=== PATIENT | male | born 1950 | race American Indian/Alaskan Native ===

== ENCOUNTER 2019-02-28 10:52 | Day surgery (SDC) | payer OTHER ==
[2019-02-28] MEDS ORDERED: SODIUM CHLORIDE 0.9% 1000 ML 1,000 ML IV SCH (12:00)
[2019-02-28] MEDS ORDERED: LIDOCAINE MPF (2%) 20 MG/1 ML VIAL 5 ML ONE (13:00)
--- NOTE | 2019-02-28 13:01 | Anesthesia Consultation ---
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
--- NOTE | 2019-02-28 13:03 | Anesthesia Day of Surgery ---
Anesthesia Day of Surgery - Day of Surgery Patient Examined: Yes Patient H&P Reviewed: Yes Patient is NPO: Yes
[2019-02-28] MEDS ORDERED: PROPOFOL 200 MG/20 ML VIAL IV ONE ×2 (13:06)
--- NOTE | 2019-02-28 13:58 | Operative Report ---
Operative Report Operative Report: Procedure: Colonoscopy with Snare polypectomy, Submucosal injection with elevation of polyp, Hot Biopsy Polypectomy Attending physician: Doc Santillan M.D. Branch Lending Manager: Doc Santillan M.D. Indication: Patient is a 68-year-old male who presents for screening colonoscopy. This colonoscopy serves to evaluate patient so that treatment may be directed based on the findings. Consent: Informed consent was obtained after advising the patient and family regarding nature of this procedure, its indications, potential benefits as well as possible complications including but not limited to bleeding perforation and adverse reaction to medication, infection as well as other cardiopulmonary complications. An informed written and verbal consent was then obtained after due opportunity was provided for questions and answers. Monitoring: Patient was monitored continuously with pulse oximetry and electrocardiographic recordings as well as blood pressure recordings. Vital signs remained stable throughout this procedure with no untoward events. Preoperative assessment: Patient was assessed immediately prior to this procedure for capacity to tolerate monitored anesthesia care and moderate sedation as well as general anesthesia. Patient's ASA classification is 2, Mallampati class is 2, Hyomental distance is 3. Instrument: Olympus video colonoscope.: CF-HQ 190L Medications: Propofol given intravenously in divided doses. For details please refer to anesthesia records. Description of procedure: Patient was placed in the left lateral decubitus position after achieving sedation, a digital rectal examination was performed following which the colonoscope was introduced into the anal verge and advanced to the cecum which was identified by the cecal valve, the appendiceal orifice, as well as by the cecal strap and direct transillumination. The colonoscope was subsequently withdrawn with careful inspection of all mucosal surfaces. Patient tolerated this procedure well and was subsequently taken to the recovery room. The following findings were noted. Findings: Patient had a sessile polyp seen in the ascending colon measuring about 10 mm. This was elevated with submucosal injection of saline and removed by snare electrocautery and retrieved. There was an adjacent polyp measured approximately 8 mm which was removed by hot biopsy polypectomy and retrieved. There were diverticula seen in the ascending colon. There were diverticula seen in the sigmoid colon and descending colon. Substantial retained stool seen in the ascending colon and also in the descending colon sigmoid colon. Patient was noted to have internal hemorrhoids seen on the retroflexed view at the anal verge. Impression: Ascending polyp status post snare polypectomy and submucosal injection Ascending colon polyps status post hot biopsy polypectomy and ablation. Diverticular disease of the colon. Internal hemorrhoids. Retained stool. Plan: Follow pathology report. High-fiber diet. Consider repeat colonoscopy in one year due to retained stool.
--- NOTE | 2019-02-28 13:59 | Discharge Summary ---
Short Stay Discharge Plan Activity: advance as tolerated Weight Bearing Status: Weight Bear as Tolerated Diet: regular Follow up with: [facility] [Primary Care Provider] - 7 Days
[2019-02-28 14:35] VITALS: BP 114/95
--- NOTE | 2019-02-28 20:40 | Post Anesthesia Evaluation ---
- Post Anesthesia Evaluation Patient Participated: Yes Airway Patent: Yes Stable Respiratory Function: Yes Nausea/Vomiting: No Temp > 96.8F: Yes Pain Manageable: Yes Adequeate Hydration: Yes Anesthesia Complications: No Block Receding Appropriately: Not Applicable Patient on Ventilator: No
== END 2019-02-28 10:53 | disposition home or self-care (01) ==
LOC: GIO 10:52
PROVIDERS: ATTEND Internal Medicine Gastroenterology
DX: D12.2 Benign neoplasm of ascending colon (principal); I10 Essential (primary) hypertension; E11.9 Type 2 diabetes mellitus without complications; N40.0 Benign prostatic hyperplasia without lower urinary tract symptoms; K64.8 Other hemorrhoids; K57.30 Diverticulosis of large intestine without perforation or abscess without bleeding; E78.00 Pure hypercholesterolemia, unspecified; G47.30 Sleep apnea, unspecified; Z98.890 Other specified postprocedural states; Z79.899 Other long term (current) drug therapy; Z87.891 Personal history of nicotine dependence; Z96.653 Presence of artificial knee joint, bilateral; Z86.73 Personal history of transient ischemic attack (TIA), and cerebral infarction without residual deficits
CPT/HCPCS: 45381; 45384; 45385; 82962; 88305; J2704; J7030

== ENCOUNTER 2019-09-24 12:48 | Emergency (ER) | payer OTHER ==
--- NOTE | 2019-09-24 14:13 | XRay Report ---
CHEST 1 VIEW INDICATION / CLINICAL INFORMATION: hypertension. COMPARISON: None available. FINDINGS: SUPPORT DEVICES: None. HEART / MEDIASTINUM: No significant abnormality. LUNGS / PLEURA: No significant pulmonary or pleural abnormality. No pneumothorax. ADDITIONAL FINDINGS: No significant additional findings. IMPRESSION: 1. No acute findings. Signer Name: Ken Ramírez MD Signed: 09/24/2019 2:09 PM Workstation Name: [id number]
[2019-09-24] MEDS ORDERED: SODIUM CHLORIDE 0.9% 1000 ML 1,000 ML IV ONE (14:15)
--- NOTE | 2019-09-24 14:15 | Emergency Department Report ---
<MAYA QUIROS M - Last Filed: 09/24/19 15:18> ED General Adult HPI - General Chief complaint: Medical Clearance Stated complaint: DEMENTIA Time Seen by Provider: 09/24/19 13:44 Source: EMS Mode of arrival: Stretcher Limitations: Other - History of Present Illness Initial comments: 69-year-old man with a history of dementia. He was [place]. He was wet and thereby brought to the emergency department for evaluation. Upon arrival, I am told he is at his baseline. He is awake and alert. He does not know his age. He does not know exactly where he is geographically. He does know he is in a hospital. He has no specific complaint he denies injury. -: unknown Severity scale (0 -10): 0 Associated Symptoms: denies other symptoms - Related Data Home Medications Medication Instructions Recorded Confirmed Last Taken Pravastatin Sodium 40 mg PO DAILY 02/28/19 02/28/19 02/26/19 Sertraline HCl 100 mg PO DAILY 02/28/19 02/28/19 02/26/19 Tamsulosin 0.4 mg PO DAILY 02/28/19 02/28/19 02/26/19 amLODIPine 10 mg PO DAILY 02/28/19 02/28/19 02/28/19 Allergies Allergy/AdvReac Type Severity Reaction Status Date / Time No Known Allergies Allergy Verified 09/24/19 13:31 ED Review of Systems Constitutional: denies: chills, fever Eyes: eye discharge. denies: eye pain, vision change ENT: denies: ear pain, throat pain Respiratory: wheezing. denies: cough, shortness of breath Cardiovascular: denies: chest pain, palpitations Endocrine: no symptoms reported Gastrointestinal: denies: abdominal pain, vomiting, diarrhea Genitourinary: denies: urgency, dysuria Musculoskeletal: denies: back pain, joint swelling Skin: denies: rash, lesions Neurological: denies: headache, weakness Psychiatric: denies: anxiety, depression Hematological/Lymphatic: denies: easy bleeding, easy bruising ED Past Medical Hx - Past Medical History Previous Medical History?: Yes Hx Hypertension: Yes Hx Diabetes: Yes (PRE) Hx Dementia: Yes Additional medical history: gout - Social History Smoking Status: Never Smoker Substance Use Type: None - Medications Home Medications: Home Medications Medication Instructions Recorded Confirmed Last Taken Type Pravastatin Sodium 40 mg PO DAILY 02/28/19 02/28/19 02/26/19 History Sertraline HCl 100 mg PO DAILY 02/28/19 02/28/19 02/26/19 History Tamsulosin 0.4 mg PO DAILY 02/28/19 02/28/19 02/26/19 History amLODIPine 10 mg PO DAILY 02/28/19 02/28/19 02/28/19 History ED Physical Exam - General Limitations: Other (Dementia) General appearance: alert, in no apparent distress - Head Head exam: Present: atraumatic, normocephalic - Eye Eye exam: Present: normal appearance. Absent: scleral icterus - ENT ENT exam: Present: mucous membranes moist - Neck Neck exam: Present: normal inspection. Absent: tenderness, meningismus - Respiratory Respiratory exam: Present: normal lung sounds bilaterally. Absent: respiratory distress - Cardiovascular Cardiovascular Exam: Present: regular rate, normal rhythm. Absent: systolic murmur, diastolic murmur, rubs, gallop - GI/Abdominal GI/Abdominal exam: Present: soft, normal bowel sounds. Absent: distended, tenderness, guarding, rebound - Rectal Rectal exam: Present: deferred - Extremities Exam Extremities exam: Present: normal inspection - Back Exam Back exam: Present: normal inspection - Neurological Exam Neurological exam: Present: alert, oriented X3 (Generally), CN II-XII intact, other (No drift, no cerebellar findings). Absent: motor sensory deficit - Psychiatric Psychiatric exam: Present: normal affect, normal mood - Skin Skin exam: Present: warm, dry, intact, normal color. Absent: rash ED Medical Decision Making - Lab Data Result diagrams: 09/24/19 14:10 09/24/19 14:10 Laboratory Results - last 24 hr 09/24/19 09/24/19 09/24/19 14:10 14:10 14:10 WBC 9.4 RBC 4.53 Hgb 14.0 Hct 41.8 MCV 92 MCH 31 MCHC 34 RDW 13.7 Plt Count 159 Lymph % (Auto) 5.3 L [place] % (Auto) 4.5 Eos % (Auto) 0.1 Baso % (Auto) 0.3 Lymph # 0.5 L [place] # 0.4 Eos # 0.0 Baso # 0.0 Seg Neutrophils % 89.8 H Seg Neutrophils # 8.4 H Sodium 144 Potassium 4.2 Chloride 103.1 Carbon Dioxide 27 Anion Gap 18 BUN 14 Creatinine 1.0 Estimated GFR > 60 BUN/Creatinine Ratio 14 Glucose 136 H Calcium 9.9 Magnesium 2.10 Total Bilirubin 0.60 Direct Bilirubin < 0.2 AST 26 ALT 15 Alkaline Phosphatase 79 Ammonia 30.0 CK-MB (CK-2) 4.0 Troponin T 0.027 NT-Pro-B Natriuret Pep 105.4 Total Protein 6.9 Albumin 4.8 Albumin/Globulin Ratio 2.3 Plasma/Serum Alcohol 09/24/19 14:10 WBC RBC Hgb Hct MCV MCH MCHC RDW Plt Count Lymph % (Auto) [place] % (Auto) Eos % (Auto) Baso % (Auto) Lymph # [place] # Eos # Baso # Seg Neutrophils % Seg Neutrophils # Sodium Potassium Chloride Carbon Dioxide Anion Gap BUN Creatinine Estimated GFR BUN/Creatinine Ratio Glucose Calcium Magnesium Total Bilirubin Direct Bilirubin AST ALT Alkaline Phosphatase Ammonia CK-MB (CK-2) Troponin T NT-Pro-B Natriuret Pep Total Protein Albumin Albumin/Globulin Ratio Plasma/Serum Alcohol < 0.01 - Radiology Data Radiology results: pending, image reviewed (Chest x-ray no acute process. I do not see anything acute on CT. Report is pending.) ED Disposition Clinical Impression: Dementia with behavioral disturbance Qualifiers: Dementia type: unspecified type Qualified Code(s): F03.91 - Unspecified dementia with behavioral disturbance Disposition: DC-01 TO HOME OR SELFCARE Is pt being admited?: No Does the pt Need Aspirin: No Condition: Stable Instructions: Dementia (ED) Additional Instructions: Follow-up with primary care provider. Return any acute change or problem. Referrals: [facility]IMARY [facility] [Primary Care Provider] - 3-5 Days <ANNIE STEWART - Last Filed: 09/24/19 17:15> ED Review of Systems ROS: Stated complaint: DEMENTIA Other details as noted in HPI ED Course Vital Signs 09/24/19 09/24/19 09/24/19 13:02 13:10 13:15 Temperature 98.4 F Pulse Rate 98 H 92 H Respiratory 22 12 Rate Blood Pressure 170/81 Blood Pressure 170/81 [Right] O2 Sat by Pulse 97 98 97 Oximetry 09/24/19 09/24/19 09/24/19 13:46 14:00 14:16 Temperature Pulse Rate 89 92 H 93 H Respiratory 16 16 15 Rate Blood Pressure 146/85 143/89 143/108 Blood Pressure [Right] O2 Sat by Pulse 96 96 96 Oximetry 09/24/19 09/24/19 15:01 15:17 Temperature Pulse Rate 95 H 93 H Respiratory 15 15 Rate Blood Pressure 148/97 Blood Pressure 148/97 [Right] O2 Sat by Pulse 96 Oximetry - Reevaluation(s) Reevaluation #1: 09/24/19 17:08 Reevaluation #2: 09/24/19 17:10 09/24/19 17:11 patient resting comfortably, and in no acute distress. Objective laboratory studies and imaging studies unremarkable. Contacted his niece, Ms. Boone; [phone] and discussed the patient's history, physical, and pertinent laboratory studies. She reports that she and her family are at home with the patient all the time, but the patient frequently will "slip off." I recommended that she and her family follow-up with a primary care doctor or benefits clerk within the [facility], to discuss long-term plan of care, such as home health aide, or possible placement into a snf. She verbalizes understanding. As a courtesy, I will place a case management consult in our computer to follow-up to determine if the patient is eligible for any additional interventions or assistance. His niece for the requested medication to "mellow him out", and therefore, I will give him diphenhydramine by mouth x1. ED Medical Decision Making - Lab Data Result diagrams: 09/24/19 14:10 09/24/19 14:10 - EKG Data -: EKG Interpreted by Me EKG shows normal: sinus rhythm Rate: normal - EKG Data When compared to previous EKG there are: previous EKG unavailable 09/24/19 17:14 There is no prior EKG available for comparison. Sinus rhythm, 97 bpm, normal axis, QTC prolonged, GA interval prolonged, the EKG is abnormal with motion artifact, it is not a STEMI - Radiology Data Radiology results: report reviewed, image reviewed X-ray of the chest, noncontrast CT scan of the brain is negative for acute disease Critical care attestation.: If time is entered above; I have spent that time in minutes in the direct care of this critically ill patient, excluding procedure time. ED Disposition Is pt being admited?: No Does the pt Need Aspirin: No
[2019-09-24 14:49] LABS: Basophils % (Auto) 0.3 % (0.0-1.8); Eosinophils % (Auto) 0.1 % (0.0-4.3); Hematocrit 41.8 % (35.5-45.6); Lymphocytes # (Auto) 0.5 K/mm3 (1.2-5.4); Lymphocytes % (Auto) 5.3 % (13.4-35.0); Mean Corpuscular HGB Conc 34 % (32-34); Mean Corpuscular Volume 92 fl (84-94); Monocytes # (Auto) 0.4 K/mm3 (0.0-0.8); Monocytes % (Auto) 4.5 % (0.0-7.3); Platelet Count 159 K/mm3 (140-440); Red Blood Count 4.53 M/mm3 (3.65-5.03); Red Cell Distribution Width 13.7 % (13.2-15.2)
[2019-09-24 14:54] LABS: Alanine Aminotransferase 15 units/L (7-56); Albumin 4.8 g/dL (3.9-5); BUN/Creatinine Ratio 14; Blood Urea Nitrogen 14 mg/dL (9-20); Calcium 9.9 mg/dL (8.4-10.2); Hemolysis Index 14
[2019-09-24 15:03] LABS: Bilirubin,Direct < 0.2 mg/dL (0-0.2)
[2019-09-24 15:54] LABS: Amphetamine Screen,Urine PRESUMPTIVE NEGATIVE; Benzodiazepines Screen,Urine PRESUMPTIVE NEGATIVE; Cannabinoid Screen,Urine PRESUMPTIVE NEGATIVE; Cocaine Screen,Urine PRESUMPTIVE NEGATIVE; Methadone Screen,Urine PRESUMPTIVE NEGATIVE; Opiate Screen,Urine PRESUMPTIVE NEGATIVE
[2019-09-24 16:01] LABS: Bilirubin,Urine NEG (Negative); Blood,Urine NEG (Negative); Color,Urine Yellow (Yellow); Mucus,Urine 1+ /HPF; Protein,Urine <15 mg/dL mg/dL (Negative)
--- NOTE | 2019-09-24 16:11 | Cat Scan Report ---
CT BRAIN: 09/24/2019 INDICATION / CLINICAL INFORMATION: AMS. COMPARISON: None available. FINDINGS: BRAIN/INTRACRANIAL STRUCTURES: Unenhanced CT images of the brain demonstrate no evidence of acute abn ormality. Ventricles and sulci are prominent in size, consistent with diffuse cerebral atrophy. Extensive chronic white matter hypoattenuation is present throughout the cerebral hemispheric white m atter. There is no evidence of acute ischemic injury, hemorrhage, or mass. There are no abnormal extra-axial fluid collections. Atherosclerotic vascular calcifications are present in the distal internal carotid arteries and verte bral arteries. EXTRACRANIAL STRUCTURES: Unremarkable. IMPRESSION: No acute abnormality. Extensive chronic and age-related changes. All CT scans at this location are performed using dose reduction to ALARA by means of automated expos ure control. Signer Name: Ghanshyam Panchal MD Signed: 09/24/2019 4:06 PM Workstation Name: [id number]
[2019-09-24] MEDS ORDERED: diphenhydrAMINE 25 MG/10 ML ORAL LIQUID PO ONE (17:11)
[2019-09-24 19:11] VITALS: BP 167/100
== END 2019-09-24 19:11 | disposition home or self-care (01) ==
LOC: ED 12:48
DX: F03.91 Unspecified dementia, unspecified severity, with behavioral disturbance (principal); I10 Essential (primary) hypertension; E11.9 Type 2 diabetes mellitus without complications; M10.9 Gout, unspecified; Z79.899 Other long term (current) drug therapy
CPT/HCPCS: 36415; 70450; 71045; 80048; 80076; 80307; 81001; 82140; 82550; 82553; 83735; 83880; 84484; 85025; 93005; 99285; J7030; 80320; G0480; Q0163